=== PATIENT | male | born 1955 | race Hispanic/Latino ===

== ENCOUNTER → 2021-04-12 | Outpatient (CLI) | payer OTHER | END | disposition home or self-care (01) | LOC: SHCH 09:58 | PROVIDERS: ATTEND Internal Medicine Cardiovascular Disease | DX: I73.9 Peripheral vascular disease, unspecified (principal); I87.2 Venous insufficiency (chronic) (peripheral); Z95.828 Presence of other vascular implants and grafts | CPT/HCPCS: 93925; 93970 ==

== ENCOUNTER 2021-05-30 06:53 | Day surgery (SDC) | payer OTHER ==
[2021-05-26 10:09] LABS: BASOPHILS % (AUTO) 0.7 % (0.0-5.0); EOSINOPHILS % (AUTO) 2.2 % (0.0-8.0); HEMATOCRIT 43.3 % (42-54); MEAN CORPUSCULAR HEMOGLOBIN 32.3 pg (27.0-33.0); MEAN CORPUSCULAR HGB CONC 33.3 g/dL (32.0-36.0); MEAN CORPUSCULAR VOLUME 97.1 fL (79-99); MONOCYTES % (AUTO) 8.4 % (3.0-13.0); NEUTROPHILS % (AUTO) 74.1 % (40.0-77.0); PLATELET COUNT (AUTO) 323 K/uL (130-400); RED BLOOD CELL COUNT(AUTO) 4.46 MIL/uL (4.50-6.20); RED CELL DISTRIBUTION WIDTH 12.3 % (11.0-15.5); WHITE BLOOD COUNT (AUTO) 10.8 K/uL (4.8-10.8)
[2021-05-26 10:10] LABS: APPEARANCE,URINE Clear (CLEAR); BILIRUBIN,URINE Negative (NEGATIVE); COLOR,URINE Yellow (YELLOW); GLUCOSE, URINE (UA) Negative (NEGATIVE); KETONES,URINE Negative (NEGATIVE); LEUKOCYTE ESTERASE ,URINE Negative (NEGATIVE); NITRATE,URINE Negative (NEGATIVE); OCCULT BLOOD,URINE Negative (NEGATIVE); PROTEIN,URINE Negative (NEGATIVE); UROBILINOGEN,URINE 0.2 mg/dL (0.2-1.0)
[2021-05-26 10:21] LABS: PROTHROMBIN TIME 10.9 SEC (9.6-11.6)
[2021-05-26 10:22] LABS: CREATININE 1.5 mg/dL (0.5-1.5); PARTIAL THROMBOPLASTIN TIME 31.3 SEC (26.3-35.5)
[2021-05-26 10:34] LABS: B-TYPE NATRIURETIC PEPTIDE 20 pg/mL (0-100)
[2021-05-29 12:05] VITALS: BP 150/68
[~2021-05-30] VITALS: Ht 175.3 cm; Wt 103.0 kg
[2021-05-30] VITALS (24 sets, daily range): BP systolic 96–143; BP diastolic 42–66
[~2021-05-30 06:53] MED LIST: AMOX500C2 PO; ASPI-449 PO; ATOR20TA65 PO; CARB15DR OP; CARV25TA PO; CETI10TA57 PO; CHOL2000 PO; FERR-72 PO; FOLI0.8T41 PO; HYDR25TA PO; INSU100I3 SQ; ISOS30TA92 PO; LEVO100C4 PO; LISI40TA9 PO; METH-812 PO; NPH,100V11 SQ; RANO500T6 PO; RIVA2.5T PO; TRAM50TA4 PO
[2021-05-30] MEDS ORDERED: 0.9%NACL 1000ML 1,000 ML IV ONE (07:30)
[2021-05-30] MEDS ORDERED: DEXTROSE 50%-WATER 50 ML DISP.SYRIN IV ONE (07:34)
[2021-05-30] MEDS ORDERED: DEXTROSE 50%-WATER 50 ML DISP.SYRIN IV SCH (08:00)
[2021-05-30] MEDS ORDERED: NITROGLYCERIN 50MG VIAL ONE (08:19)
[2021-05-30] MEDS ORDERED: IOHEXOL-350 50ML VIAL IV ONE (08:19)
[2021-05-30] MEDS ORDERED: HEPARIN 10,000 UNIT/10ML (1,000 UNIT/ML) VIAL ONE (08:19)
[2021-05-30] MEDS ORDERED: IOHEXOL 350 MG/ML 100ML INFUS..BTL IV ONE (08:20)
[2021-05-30] MEDS ORDERED: MIDAZOLAM HCL 1 MG/ML 2ML VIAL ONE (08:20)
[2021-05-30] MEDS ORDERED: LIDOCAINE HCL 1% MDV 50ML VIAL ONE (08:21)
[2021-05-30] MEDS ORDERED: FENTANYL CITRATE PF 50 MCG/1 ML 2ML VIAL ONE (08:21)
[2021-05-30] MEDS ORDERED: CLOPIDOGREL 300MG TAB ONE (09:51)
[2021-05-30] MEDS ORDERED: GLUCAGON 1MG KIT 1 MG ML IM PRN (10:00)
[2021-05-30] MEDS ORDERED: DEXTROSE 50%-WATER 50 ML DISP.SYRIN IV PRN (10:00)
[2021-05-30] MEDS ORDERED: 0.9%NACL 1000ML 1,000 ML IV SCH (10:00)
[2021-05-30] MEDS ORDERED: INSULIN HUMULIN R 100 UNIT/ML 3ML SQ SCH (11:30)
[2021-05-30] MEDS ORDERED: ATROPINE 1MG SYG IVP ONE (11:38)
== END 2021-05-30 16:30 | disposition home or self-care (01) ==
LOC: DAH 06:53
PROVIDERS: ATTEND Internal Medicine Cardiovascular Disease
DX: I70.248 Atherosclerosis of native arteries of left leg with ulceration of other part of lower leg (principal); E11.51 Type 2 diabetes mellitus with diabetic peripheral angiopathy without gangrene; E11.22 Type 2 diabetes mellitus with diabetic chronic kidney disease; I77.1 Stricture of artery; I70.92 Chronic total occlusion of artery of the extremities; T82.856A Stenosis of peripheral vascular stent, initial encounter; I12.9 Hypertensive chronic kidney disease with stage 1 through stage 4 chronic kidney disease, or unspecified chronic kidney disease; N18.4 Chronic kidney disease, stage 4 (severe); E11.42 Type 2 diabetes mellitus with diabetic polyneuropathy; E11.319 Type 2 diabetes mellitus with unspecified diabetic retinopathy without macular edema; E78.5 Hyperlipidemia, unspecified; I25.10 Atherosclerotic heart disease of native coronary artery without angina pectoris; I87.2 Venous insufficiency (chronic) (peripheral); I25.2 Old myocardial infarction; E66.9 Obesity, unspecified; Z68.33 Body mass index [BMI] 33.0-33.9, adult; Z95.5 Presence of coronary angioplasty implant and graft; Z98.890 Other specified postprocedural states; Z82.49 Family history of ischemic heart disease and other diseases of the circulatory system; Z83.3 Family history of diabetes mellitus; Y83.8 Other surgical procedures as the cause of abnormal reaction of the patient, or of later complication, without mention of misadventure at the time of the procedure
CPT/HCPCS: 36415 ×2; 37226; 71045; 75716; 80048; 81003; 82948 ×3; 83880; 85025; 85347; 85610; 85730; 93005; A4215; A4216; A4221; A4222; A4223 ×3; A4606; A4663; C1769 ×2; C1876; C1887; C1893; C1894 ×2; C2623; J1644 ×2; J2250; J3010; J3490 ×2; J7030; J7070; Q9967 ×2; 75710; 75774; 99156; 99157; J0461

== ENCOUNTER → 2022-03-13 | Outpatient (CLI) | payer OTHER | END | disposition home or self-care (01) | LOC: SHCH 14:52 | PROVIDERS: ATTEND Internal Medicine Cardiovascular Disease | DX: I70.203 Unspecified atherosclerosis of native arteries of extremities, bilateral legs (principal) | CPT/HCPCS: 93925 ==

== ENCOUNTER → 2023-06-06 | Outpatient (CLI) | payer OTHER | END | disposition home or self-care (01) | LOC: SHCH 12:56 | PROVIDERS: ATTEND Internal Medicine Cardiovascular Disease | DX: I70.203 Unspecified atherosclerosis of native arteries of extremities, bilateral legs (principal); I87.1 Compression of vein; I87.2 Venous insufficiency (chronic) (peripheral); I11.9 Hypertensive heart disease without heart failure; I25.118 Atherosclerotic heart disease of native coronary artery with other forms of angina pectoris; E78.5 Hyperlipidemia, unspecified; I25.2 Old myocardial infarction; E66.9 Obesity, unspecified; I12.9 Hypertensive chronic kidney disease with stage 1 through stage 4 chronic kidney disease, or unspecified chronic kidney disease; N18.30 Chronic kidney disease, stage 3 unspecified; Z79.899 Other long term (current) drug therapy | CPT/HCPCS: 93925; 93970 ==

== ENCOUNTER → 2024-06-18 | Outpatient (CLI) | payer OTHER ==
[~2024-06-18] MED LIST changes: -LEVO100C4 PO; +LEVO100C5 PO
== END | disposition home or self-care (01) ==
LOC: SHCH 12:18
PROVIDERS: ATTEND Internal Medicine Cardiovascular Disease
DX: I70.203 Unspecified atherosclerosis of native arteries of extremities, bilateral legs (principal); I87.2 Venous insufficiency (chronic) (peripheral); I87.1 Compression of vein
CPT/HCPCS: 93925; 93970

== ENCOUNTER → 2024-12-18 | Outpatient (CLI) | payer OTHER ==
[~2024-12-18] MED LIST changes: +LISI40TA15 PO; -LISI40TA9 PO
--- NOTE | 2024-12-18 14:54 | HMCIMG ---
US ARTERIAL BILAT LOW EXT DUPL HISTORY: Peripheral vascular disease, unspecified PAD TECHNIQUE: Duplex Doppler evaluation of the arteries of both legs performed. FINDINGS: Grayscale images revealed intimal calcifications throughout both lower extremities. Peak systolic velocities and wave patterns were documented, as follows: RIGHT LEG Common femoral: 261 cm/s biphasic 50-80% stenosis Superficial femoral prox: 109 cm/s triphasic Superficial femoral mid: 106 cm/s triphasic Superficial femoral distal: 135 cm/s monophasic Popliteal: 51 cm/s monophasic Posterior tibial: 32 cm/s monophasic Anterior tibial artery: 1 38 cm/s monophasic stenosis Dorsalis pedis: 91 cm/s monophasic LEFT LEG Common femoral: 246 cm/s biphasic 50-80% stenosis Superficial femoral prox: 91 cm/s monophasic vascular stent in place Superficial femoral mid: 256 cm/s monophasic vascular stent in place Superficial femoral distal: 78 cm/s monophasic vascular stent in place Popliteal: 28 cm/s monophasic Posterior tibial: 42 cm/s monophasic Anterior tibial: 57 cm/s monophasic Dorsalis pedis: 23 cm/s monophasic IMPRESSION: There is 50-80% stenosis of both common femoral artery which is causing inflow disease Left superficial femoral artery has a vascular stent with midportion 50-80% stenosis Right anterior tibial artery has stenosis There is multilevel atherosclerotic changes. I would recommend CTAs of both lower extremity for further evaluation
== END | disposition home or self-care (01) ==
LOC: RAH 13:01
PROVIDERS: ATTEND Internal Medicine Cardiovascular Disease
DX: I73.9 Peripheral vascular disease, unspecified (principal)
CPT/HCPCS: 93925